=== PATIENT | female | born 1990 | race Two or more races ===

== ENCOUNTER 2020-12-16 11:00 | Outpatient (REF) | payer MEDICAID, SELFPAY | END 2020-12-16 11:01 | disposition home or self-care (01) | LOC: HO.LAB 11:00 | PROVIDERS: PCP Family Medicine; Visit Provider Internal Medicine | DX: Z20.822 Contact with and (suspected) exposure to COVID-19 (principal) | CPT/HCPCS: 36415; C9803; U0003 ==

== ENCOUNTER → 2022-01-27 13:19 | Outpatient (REF) | payer MEDICAID, SELFPAY ==
--- NOTE | 2022-01-27 13:23 | ECG_ITS ---
Hook-up date: 2022-01-27 13:35:00 Duration: 42:50:00 Test Indications: CHEST PAIN Medications: [id number] QRS complexes 2 Ventricular ectopics which represent <1 % of total QRS comp. 1 Supraventricular ectopics which represent <1 % of total QRS comp. * Paced QRS complexs which represent % of total QRS comp. VENTRICULAR ECTOPY 2 Isolated 0 Bigeminal Cycles 0 Couplets 0 Runs 0 Beats in Runs * Beats LONGEST at * BPM at :: -- * Beats FASTEST at * BPM at :: -- SUPRAVENTRICULAR ECTOPY 1 Isolated 0 Couplets 0 Runs 0 Beats in Runs * Beats LONGEST at * BPM at :: -- * Beats FASTEST at * BPM at :: -- HEART RATES 47 MIN at 05:17:30 2022-01-28 74 AVG 140 MAX at 19:13:30 2022-01-27 LONGEST RR 1.7040 secs at 11:57:11 2022-01-28 S-T LEVELS Channel 1 - 128 mm at 13:35:00 2022-01-27 - 128 mm at 13:35:00 2022-01-27 Channel 2 - 128 mm at 13:35:00 2022-01-27 - 128 mm at 13:35:00 2022-01-27 Channel 3 - 128 mm at 03:25:41 -- - 128 mm at 03:25:41 Basic rhythm Normal sinus rhythm No long pause or profound bradycardia No dangerous dysrhythm periods Patient did not report any symptoms in the diary Referred By: Yusra Barahona Overread By: RENE BREAUX MD
== END ==
LOC: HO.CARD 13:19
PROVIDERS: PCP Family Medicine; Visit Provider Family Medicine
DX: R07.89 Other chest pain (principal)
CPT/HCPCS: 93225; 93226

== ENCOUNTER 2022-01-28 14:28 | Outpatient (REF) | payer MEDICAID, SELFPAY ==
--- NOTE | ~2022-01-28 | XR_ITS ---
EXAMINATION: XR CHEST CLINICAL INFORMATION: This is a 31-year-old female with chest pain. COMPARISON: None TECHNIQUE: 2 views of the chest were obtained. FINDINGS: No significant abnormality is noted involving the heart, lungs, mediastinum, bony thorax or soft tissues. XR/XR chest 2V IMPRESSION: Unremarkable examination.
== END 2022-01-28 14:29 | disposition home or self-care (01) ==
LOC: HO.XRAY 14:28
PROVIDERS: Absent Provider Family Medicine; PCP Family Medicine; Visit Provider Family Medicine
DX: R07.89 Other chest pain (principal)
CPT/HCPCS: 71046

== ENCOUNTER 2022-04-22 13:55 | Outpatient (REF) | payer MEDICAID, SELFPAY ==
--- NOTE | ~2022-04-22 | MM_ITS ---
EXAMINATION: MM DIAGNOSTIC DIGITAL BREAST TOMOSYNTHESIS, BILATERAL US DIAGNOSTIC ULTRASOUND BREAST, RIGHT CLINICAL INFORMATION: Small palpable nodularity upper inner right breast near areolar. No discharge. Age 31. No prior mammography. The lifetime risk of breast cancer based on the Tyrer-Cuzick Model is 8%. COMPARISON: Targeted left breast ultrasound 02/27/2016. No prior mammography. TECHNIQUE: Digital breast tomosynthesis is performed in both the craniocaudal and mediolateral oblique views along with computer-aided detection (CAD). Synthesized 2D images are generated from the tomosynthesis. Ultrasound right breast is targeted to the 11:00 through 2:00 position. Grayscale imaging and color Doppler are performed without and with harmonics. FINDINGS: The breasts are extremely dense, which lowers the sensitivity of mammography (ACR BI-RADS breast composition Category d). There is no significant mass or architectural abnormality. No abnormal calcifications. The axilla are unremarkable. There are bilateral nipple piercings. No skin thickening or coarsening of the Abhijeet's ligaments. No duct ectasia. Ultrasound right breast demonstrates 2 tiny simple cysts each under 5 mm, periareolar 11:00 position and periareolar 1:00 position. No solid mass or architectural abnormality. No focal duct ectasia. No skin thickening or edema tracking in soft tissue planes. Results are discussed with the patient at time of visit. MM/MM tomosynthesis diagnostic BI IMPRESSION: -No mammographic evidence of malignancy. -2 tiny cysts right breast periareolar 11:00 and 1:00 positions, each under 5 mm. ASSESSMENT: BI-RADS 2: Benign RECOMMENDATION: Routine annual mammography screening, beginning age 40, or earlier as clinical risk factors warrant. This patient's information was entered into a reminder system with a target due date for their next mammogram.
== END 2022-04-22 13:56 | disposition home or self-care (01) ==
LOC: HO.MAMMO 13:55
PROVIDERS: PCP Family Medicine; Visit Provider Nurse Practitioner Family
DX: N63.12 Unspecified lump in the right breast, upper inner quadrant (principal)
CPT/HCPCS: 76642; 77062; 77066

== ENCOUNTER 2023-08-30 10:36 | Outpatient (REF) | payer MEDICAID, SELFPAY | END 2023-08-30 10:37 | disposition home or self-care (01) | LOC: HO.HHCL 10:36 | PROVIDERS: Visit Provider Family Medicine | DX: R42 Dizziness and giddiness (principal) | CPT/HCPCS: 36415; 80053; 82607; 82746; 84443; 85025 ==

== ENCOUNTER 2024-01-25 09:54 | Outpatient (REF) | payer MEDICAID, SELFPAY ==
[2024-01-25 11:21] LABS: MANUAL DIFF FLAG NO
[2024-01-25 11:26] LABS: Basophils Percent Auto 0.5 % (0-2); Eosinophils Absolute Auto 0.1 X10*3/uL (0.0-0.4); Eosinophils Percent Auto 1.4 % (0-4); Hematocrit 40.9 % (37.0-47.0); Hemoglobin 14.1 g/dl (12.0-16.0); Imm Gran Abs Auto 0.01 X10*3/uL (0.00-0.03); Imm Gran Pct Auto 0.2 % (0.0-0.4); Lymphocytes Absolute Auto 1.9 X10*3/uL (1.2-4.9); Lymphocytes Percent Auto 33.4 % (20-40); Mean Corpuscular HGB Conc 34.5 g/dl (31.0-35.0); Mean Corpuscular Hemoglobin 31.4 pg (27.0-33.0); Mean Corpuscular Volume 91.1 fL (80.0-98.0); Monocytes Absolute Auto 0.5 X10*3/uL (0.1-1.2); Monocytes Percent Auto 9.2 % (2-11); Neutrophils Absolute Auto 3.2 x10*3/uL (2.0-8.3); Neutrophils Percent Auto 55.3 % (45-73); Platelet Count 259 X10*3/uL (160-400); Red Blood Count 4.49 X10*6/uL (4.20-5.50); Red Cell Distribution Width 11.9 % (11.0-16.0); White Blood Count 5.8 X10*3/uL (4.8-10.8)
[2024-01-25 12:47] LABS: Folate 6.3 ng/mL (> or = 4.0); Vitamin B12 232 pg/mL (200-900)
[2024-01-25 13:57] LABS: Ferritin 76 ng/mL (10-122); Iron 68 mcg/dL (30-160); Percent Iron Saturation 25 % (15-50); TSH reflex Free T4 2.54 uIU/mL (0.32-4.0); Total Iron Binding Capacity 269 mcg/dL (228-428); Unsaturated Iron Binding 201 ug/dL; Vitamin D 25-OH Total 15.4 ng/mL (>30)
== END 2024-01-25 09:55 | disposition home or self-care (01) ==
LOC: HO.HHCL 09:54
PROVIDERS: Visit Provider Family Medicine
DX: E53.8 Deficiency of other specified B group vitamins (principal); E55.9 Vitamin D deficiency, unspecified; R42 Dizziness and giddiness; E16.2 Hypoglycemia, unspecified; K59.00 Constipation, unspecified
CPT/HCPCS: 36415; 82306; 82607; 82728; 82746; 83540; 84443; 85025